=== PATIENT | male | born 1970 | race Caucasian/White ===

== ENCOUNTER 2025-03-16 11:18 | Outpatient (CLI) | payer BC, SELFPAY ==
--- OUTSIDE RECORDS SUMMARY | 2025-03-16 11:23 | XMS_ITS | Clinical Summary ---
Author Organization Healthcare Address [address] [place] [address] Care Team Providers Care Building Admin Name Role Phone Tima Gabriel MD Primary Care Provider Family History Medical History Relation Name Comments Hyperlipidemia Father Hypertension Father Conversions - Other Maternal Grandmother cardiac pacemaker Cardiac disorder Paternal Grandfather Relation Name Status Comments Father Maternal Grandmother Paternal Grandfather Social History Tobacco Use Types Packs/Day Years Used Date Smoking Tobacco: Former Sex and Gender Information Value Date Recorded Sex Assigned at Not on file Legal Sex Male 7:29 PM EDT Gender Identity Not on file Sexual Orientation Not on file Last Filed Vital Signs Vital Sign Reading Time Taken Comments Blood Pressure - - Pulse - - Temperature - - Respiratory Rate - - Oxygen Saturation - - Inhaled Oxygen Concentration - - Weight 89.2 kg (196 lb 10.4 oz) 06/03/2016 3:20 PM EST Height 182.9 cm (6') 06/03/2016 3:20 PM EST Body Mass Index 26.67 06/03/2016 3:20 PM EST Plan of Treatment Not on file Care Teams Building Admin Relationship Specialty Start Date End Date Tima Gabriel MD [address] [place] [id number] PCP - General 11/17/20
--- OUTSIDE RECORDS SUMMARY | 2025-03-16 11:23 | XMS_ITS | Encounter Summary ---
Author Organization [facility] Address [address] [place] [address] Care Team Providers Care Assistant Auto Center Manager Name Role Phone Tima Gabriel MD Primary Care Provider [phone] Encounter Details Date Type Department Care Team (Late st Contact Info) Description 09/06/2011 Conversion Encounter [facility] HISTORICAL CONV [address] [place] [phone] Interface, See Report Social History Tobacco Use Types Packs/Day Years Used Date Smoking Tobacco: Never Assessed Sex and Gender Information Value Date Recorded Sex Assigned at Not on file Legal Sex Male 11:35 AM EDT Gender Identity Not on file Sexual Orientation Not on file documented as of this encounter H&P Notes * Interface, See Report - 09/06/2011 10:56 AM EST Skip Nesibtt M.D. ' Ismael Navarrete M.D. ' Salomón Solorzano M.D. ' TRISH Wise M.D. ' Firas Al Jaramillo, TRISH [address] [facility], [address] [place] [address] [employer] OFFICE NOTE FITO PEREZ : 1970 DATE OF VISIT: 09/06/2011 PROBLEMS: 1. Unexplained urticaria and knifelike pains in his muscles at times. 2. History of superficial phlebitis. 3. History of Crohn's disease. SUBJECTIVE: Overall Fito has done reasonably well. He has strange attacks of knifelike pains, dysesthesias, dyspnea, about every 10 to 14 days and it lasts a few hours. Associated with this is occasional uveitis that can last for a few hours but then passes. He has actually had less urticaria per se that he has had in prior months. He has had no aiden asthmatic attacks that he is aware of but when he exercises just notes that he does not quite have the same stamina in terms of his respiratory reserve that once he had. REVIEW OF SYSTEMS: Negative on ten-point review of systems other than for HPI. SOCIAL HISTORY: Unchanged from 06/07/2011. 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 PHYSICAL EXAMINATION: VITAL SIGNS: Today reveals blood pressure and vital signs normal. SKIN: He has no obvious urticaria on integumentary examination. LUNGS: Clear to auscultation. HEART: Regular rate and rhythm without murmur, gallop or rub. ABDOMEN: Scaphoid with no organomegaly, masses or tenderness. FITO PEREZ : 1970 DATE OF VISIT: 09/06/2011 PHYSICAL EXAMINATION - continued: MUSCULOSKELETAL: Point tenderness over the left chest in the muscle with some point tenderness on the forearms and abdomen as well. ABDOMEN: No rebound or guarding. EXTREMITIES: Reveal no cyanosis, clubbing, edema, or cords and no arthritic changes. NEUROLOGIC: No focal motor or sensory deficits. ASSESSMENT AND PLAN: 1. Inflammatory bowel disease. 2. History of asthma. 3. History of chronic urticaria. 4. Periodic unusual dysesthesias along with muscle pains and dyspnea that is periodic in nature and can happen whether he be under stress or not. DISCUSSION: We have thoroughly worked him up from the urticaria autoimmune standpoint and other than for his Crohn's disease for which he probably needs an ileocecal dilation, he is otherwise doing well. He will follow-up with Dr. Mcclellan on this and I will see him in six months. I have not done a hypercoagulable work-up as his clotting event was only a superficial phlebitis and this has not recurred off of any anticoagulants. I will see him sooner if there are any new clotting events or unexplained dyspnea, etc. Salomón Solorzano M.D.* LH/rxalw Doc. ID [id number] Rev. #0 cc: James Mcclellan II, M.D.* Joanna Clark M.D.* Tima Gabriel M.D., [facility]* Dr. Kate Pereira Copy - 06/07/2012 note Page 2 of 2 Page 1 of 2 Authenticated by SALOMÓN SOLORZANO M.D. On 09/09/2011 12:51:24 PM documented in this encounter Plan of Treatment Upcoming Encounters Date Type Department Care Team (Late st Contact Info) Description 08/26/2025 11:00 AM EST Office Visit [facility] CARDIOLOGY [address] [facility] [address] [place] [address] Carrol Morocho MD [address] [facility] [address] [facility] [address] [place] [address] documented as of this encounter Visit Diagnoses Not on filedocumented in this encounter Care Teams Assistant Auto Center Manager Relationship Specialty Start Date End Date Tima Gabriel MD [address] [facility] [address] [place], [place] [id number] PCP - General 10/17/15 documented as of this encounter
--- OUTSIDE RECORDS SUMMARY | 2025-03-16 11:23 | XMS_ITS | Encounter Summary ---
Author Organization [facility] ystem Address [address] [place] [address] Care Team Providers Care Supervisor Modern Languages Name Role Phone Tima Gabriel MD Primary Care Provider Encounter Details Date Type Department Care Team (Late st Contact Info) Description 06/07/2011 Conversion Encounter [facility] HISTORICAL CONV [address] [place] [address] Interface, See Report Social History Tobacco Use Types Packs/Day Years Used Date Smoking Tobacco: Never Assessed Sex and Gender Information Value Date Recorded Sex Assigned at Not on file Legal Sex Male 11:35 AM EDT Gender Identity Not on file Sexual Orientation Not on file documented as of this encounter H&P Notes * Interface, See Report - 06/07/2011 11:10 AM EST OFFICE NOTE FITO PEREZ : 1970 DATE OF VISIT: 06/07/2011 PROBLEM LIST: 1. Unexplained urticaria. 2. Superficial phlebitis. SUBJECTIVE: Since last I saw Fito his legs have been doing well. Dr. Hernandez had a look at his ultrasound and other than for some mild chronic venous insufficiency with a little bit of residual inflammation of the blood vessel wall itself, there was no residual clot. He has no particular tenderness in the leg at this point and is basically back to feeling normal. He has not had any recent urticaria. REVIEW OF SYSTEMS: Negative for any other ENT, ocular, pulmonologic, gastrointestinal, genitourinary, musculoskeletal, neurologic or integumentary complaints. SOCIAL HISTORY: Unchanged from his last visit. PHYSICAL EXAMINATION: VITAL SIGNS: Reveals him to be afebrile. Normal vital signs. HEENT: No oropharyngeal lesions. LUNGS: Clear. HEART: Regular rate and rhythm. ABDOMEN: No organomegaly, mass or tenderness. EXTREMITIES: No cyanosis, clubbing, edema, or cords. NEUROLOGIC: No focal motor or sensory deficits. NODES: All nonpalpable. FITO PEREZ : 1970 DATE OF VISIT: 06/07/2011 ASSESSMENT AND PLAN: 1. Superficial phlebitis: Even if I did an extensive hypercoagulable work-up, given that this was just a superficial clot that has subsequently resolved, I would not want to relegate him to a lifetime of anticoagulation. On the other hand, even if I did a extensive hypercoagulable work-up and it came back negative, if he nonetheless had recurrent phlebitis or pain in the leg and certainly if he had a deep vein clot or pulmonary embolus then I would want him to be on lifetime anticoagulation regardless of any hypercoagulable work-up even if it were negative. Hence to that end I am not going to do any testing of the blood as it would not change our plan at this point. I discussed this with Mr. Perez and his mother who was with him today and they both understand this and agree with that approach. 2. Urticaria: I have worked this up thoroughly and as I stated on my last note, I think that this as well as his back problems (enthesopathy and spondylolisthesis) are related to his Crohn's and has the Crohn's goes so will go the skin and the back. That it is my best estimate. At present, he is doing well. I will see him back in three months. Salomón Solorzano M.D.* LH/rxalw Doc. ID: [id number] Rev. #0 cc: Page 2 of 2 [facility] Page 1 of 2 Authenticated by SALOMÓN SOLORZANO M.D. On 06/13/2011 01:02:02 PM documented in this encounter Plan of Treatment Upcoming Encounters Date Type Department Care Team (Late st Contact Info) Description 08/26/2025 11:00 AM EST Office Visit [facility] CARDIOLOGY [address] [place] [phone] Carrol Morocho MD [address] [facility] [address] [facility] [address] [place] [id number] documented as of this encounter Visit Diagnoses Not on filedocumented in this encounter Care Teams Supervisor Modern Languages Relationship Specialty Start Date End Date Tima Gabriel MD [address] [facility] [address] [place] [address] PCP - General 10/17/15 documented as of this encounter
--- OUTSIDE RECORDS SUMMARY | 2025-03-16 11:23 | XMS_ITS | Clinical Summary ---
Author Organization [facility] Address [address] [facility] [address] [place] [address] Care Team Providers Care Stone Gluer Name Role Phone Unavailable Primary Care Provider Unavailabl e Social History Tobacco Use Types Packs/Day Years Used Date Smoking Tobacco: Never Assessed Sex and Gender Information Value Date Recorded Sex Assigned at Not on file Legal Sex Male 8:30 AM EDT Gender Identity Not on file Sexual Orientation Not on file Plan of Treatment Health Maintenance Due Date Last Done Comments CT Colonography 1970 Colonoscopy 1970 Colorectal Cancer Screening 1970 FIT-DNA (Cologuard) 1970 FIT 1970 FOBT 1970 HIV Screening 1970 Hepatitis C Screening 1970 Lipid Panel 1970 Sigmoidoscopy 1970 MMR Vaccines (1 of 1 - Stand jaleesa series) 1971 Hepatitis B Screening 1988 DTaP/Tdap/Td Vaccines (1 - Tdap) 1989 Hepatitis B Vaccines (1 of 3 - 19+ 3-dose series) 1989 Pneumococcal Vaccine: 50+ Ye ars (1 of 1 - PCV) 2020 Zoster Vaccines (1 of 2) 2020 Depression Risk Screening 07/07/2024 SDOH Screening 07/07/2024 COVID-19 Vaccine (1 - 2023-2 5 season) 2025 Influenza Vaccine (#1) 2025 HIB Vaccines Aged Out No longer eligi ble based on patient's age to complete this topic HPV Vaccines Aged Out No longer eligi ble based on patient's age to complete this topic Hepatitis A Vaccines Aged Out No long er eligible based on patient's age to complete this topic IPV Vaccines Aged Out No longer eligi ble based on patient's age to complete this topic Meningococcal B Vaccine Aged Out No l onger eligible based on patient's age to complete this topic Meningococcal Vaccine Aged Out No tierney juliane eligible based on patient's age to complete this topic Rotavirus Vaccines Aged Out No longer eligible based on patient's age to complete this topic
--- OUTSIDE RECORDS SUMMARY | 2025-03-16 11:24 | XMS_ITS | Clinical Summary ---
Author Organization [facility] Address [address] [place] [address] Care Team Providers Care Meter Attendant Name Role Phone Tima Gabriel MD Primary Care Provider Allergies Active Allergy Reactions Criticality Noted Date Comments Adalimumab Anaphylaxis,Hives High 05/07/2016 Methotrexate Derivatives 05/07/2016 Infection (fever/N/V) Medications aspirin 81 MG tablet Take 1 tablet by mouth Daily. Active Cholecalciferol (VITAMIN D3) 5000 UNITS tablet Take by mouth Daily. Active albuterol sulfate HFA 108 (90 Base) MCG/ACT inhaler 2 (Two) Times a Day As Needed. Active predniSONE (DELTASONE) 10 MG tablet 2 (Two) Times a Day As Needed. Active bisoprolol (ZEBeta) 5 MG tablet Take 0.5 tablets by mouth Daily. 90 tablet 1 5 Active nitroglycerin (NITROSTAT) 0.4 MG SL tablet 1 under the tongue as needed for angina, may repeat q5mins for up three doses 25 tablet 1 5 Active sodium-potassiu m-magnesium sulfates (Suprep Bowel Prep Kit) 17.5-3.13-1.6 GM/177ML solution oral solution Take 1st dose at 5pm. Take 2nd dose at 10pm. Nothing to eat/drink after midnight. Follow prep instructions provided by office. Questions call [phone]. 354 mL 5 Active Guselkumab (Tremfya) 200 MG/20ML solution Infuse 20 mL into a venous catheter Take As Directed. Infuse 20 mL at Week 0, 4, and 8 20 mL 2 5 Active Active Problems Problem Noted Date Diagnosed Date Statin intolerance 03/07/2017 Fatigue 03/07/2017 Elevated blood pressure 08/26/2016 Palpitations 08/26/2016 PVC (premature ventricular contraction) 08/26/19 17 GERD (gastroesophageal reflux disease) 7 Coronary artery disease invo lving umkumiut coronary artery of umk[place] heart without angina pectoris 05/07/2016 Overview (05/07/2016): a. Hospitalization with acute coronary syndrome/non-ST elevation [place], 07/22/2015. b. Urgent cardiac catheterization study by Dr. Morocho, 07/22/2015, showed single-vessel disease with total occlusion of the distal/apical segment of the right posterior descending coronary artery with mild nonobstructive plaque of the mid- LAD. Ejection fraction 55% to 60% with mid-inferior wall dyskinesis. c. Occluded vessels severed a small territory and was felt to be due to spontaneous dissection or disembolization and was not suitable for catheter-based intervention. d. Post IA frequent ventricular ectopy with subsequent improvement. Dyslipidemia 05/07/2016 Essential hypertension 05/07/2016 Crohn's disease 05/07/2016 Inflammatory arthritis 05/07/2016 Cardiac arrhythmia 05/07/2016 Overview (05/07/2016): 1. Cardiac arrhythmia/frequent premature ventricular contractions, stable. Encounters Date Type Department Care Team Description 01/01/2025 Results Follow-Up [facility] [address] [place] [address] Christiano Ramos MD 12/31/2024 Prior Authorization [facility] GASTROENTEROLOGY [address] [facility] [place] [address] Astrid Chan MA Tremfya 12/31/2024 Telephone [facility] [address] [facility] [address] [place] [address] Christiano Ramos MD Tremfya Hold 12/28/2024 Refill [facility] [address] [facility] [address] [place] [address] Christiano Ramos MD 12/27/2024 11:30 AM EDT Outside Facility Service [facility] [address] [facility] [address] [place] [address] Christiano Ramos MD 12/14/2024 Refill [facility] [address] [facility] [address] [place] [address] Christiano aRmos MD from Last 3 Months Immunizations Immunization Administration Dates Next Due Tdap 04/11/2018 Family History Medical History Relation Name Comments Hyperlipidemia Father Je Hypertension Father Je Cancer Maternal Grandfather Hypertension Maternal Grandmother Vi No Known Problems Mother Heart disease Paternal Grandfather Grandpy Diabetes Paternal Grandmother Autoimmune disease Sister Fibromyalgia Sister Relation Name Status Comments Father Je Alive Maternal Grandfather Maternal Grandmother Vi Mother Alive Paternal Grandfather Grandpy Paternal Grandmother Sister Alive Social History Tobacco Use Types Packs/Day Years Used Date Smoking Tobacco: Former Cigarettes 0.5 1 0 07/07/1990 - 06/07/1991 Passive Smoke Exposure: Never Smokeless Tobacco: Never Tobacco Cessation:Counseling Given: Not Answered Alcohol Use Standard Drinks/Week Comments Yes 4 (1 standard drink = 0.6 oz pur e alcohol) occasional Sex and Gender Information Value Date Recorded Sex Assigned at Not on file Legal Sex Male 11:35 AM EDT Gender Identity Not on file Sexual Orientation Not on file Last Filed Vital Signs Vital Sign Reading Time Taken Comments Blood Pressure 128/90 11/24/2024 11:23 AM EDT Pulse 69 11/24/2024 11:23 AM EDT Temperature 36.6 C (97.8 F) 04/13/2019 1:30 PM EDT Respiratory Rate 16 04/13/2019 1:30 PM EDT Oxygen Saturation 98% 11/24/2024 11:23 AM EDT Inhaled Oxygen Concentration - - Weight 82.6 kg (182 lb) 11/24/2024 11:23 AM EDT Height 182.9 cm (6') 11/24/2024 11:23 AM EDT Body Mass Index 24.68 11/24/2024 11:23 AM EDT Plan of Treatment Upcoming Encounters Date Type Department Care Team (Late st Contact Info) Description 08/26/2025 11:00 AM EST Office Visit [facility] CARDIOLOGY [address] [place] [phone] Carrol Morocho MD [address] [place] [address] Health Maintenance Due Date Last Done Comments COLOGUARD 2015 COLON CANCER SCREENING 5 YEA R SIGMOIDOSCOPY 2015 CT COLONOGRAPHY 2015 FECAL OCCULT BLOOD TEST 2015 FIT Testing (1 year) 2015 ANNUAL PHYSICAL 01/23/2017 HEPATITIS C SCREENING 01/23/2017 Pneumococcal Vaccine 50+ (1 of 1 - PCV) 2020 ZOSTER VACCINE (1 of 2) 2020 COVID-19 Vaccine (1 - season) 2025 INFLUENZA VACCINE 04/06/2025 04/27/2018, 05/01/2010 TDAP/TD VACCINES (2 - Td or Tdap) 04/11/2028 018 COLONOSCOPY 12/27/2034 12/27/2024 COLORECTAL CANCER SCREENING 12/27/2034 Procedures Procedure Name Priority Date/Time Associated Diagnosis Comments TISSUE PATHOLOGY EXAM Routine 12/27/2024 2:50 PM EDT Personal history of colon polyps, unspecified Ulcerative colitis, unspecified, without complications Noninfective gastroenteritis and colitis, unspecified SCANNED - COLONOSCOPY 12/27/2024 from Last 3 Months Results * Tissue Pathology Exam (12/27/2024 2:50 PM EDT) Case Report Surgical Pathology Report Case: [id number] Authorizing Provider: Christiano Ramos Collected: 12/27/2024 02:50 PM MD Angel Ordering Location: [facility] Received: 12/28/2024 06:51 AM LABORATORY Pathologist: Burton Chandra MD Specimen: Ileum, terminal 12/29/2024 11:05 AM EDT [facility] Clinical Information Personal history of colon polyps, unspecified Ulcerative colitis, unspecified, without complications Noninfective gastroenteritis and colitis, unspecified 12/29/2024 11:05 AM EDT [facility] Final Diagnosis TERMINAL ILEUM, BIOPSY: Chronic mildly active ileitis with ulcer Negative for dysplasia or malignancy GJK 12/29/2024 11:05 AM EDT [facility] at 1105 EDT Gross Description 1. Ileum, terminal. Received in formalin labeled terminal ileum ulcer is a 1 x 0.3 x 0.1 cm aggregate of multiple timmons tissue fragments, submitted entirely in a single cassette. LDP 12/29/2024 11:05 AM EDT [facility] Microscopic Description The slides are reviewed and demonstrate histopathologic features supporting the above rendered diagnosis. 12/29/2024 11:05 AM EDT [facility] Tissue Structure of distal portion of ileum / Unknown 12/27/2024 2:50 PM EDT 12/28/2024 6:51 AM EDT Christiano Ramos MD PATHOLOGY/CYTOLOG Y ORDERABLES Final Result [facility]
[address] [place] [address], * Colonoscopy, Scan (12/27/2024) Christiano Ramos MD CHART REVIEW T ABS Final Result from Last 3 Months Insurance [facility] Care Teams Meter Attendant Relationship Specialty Start Date End Date Tima Gabriel MD [address] [place] [address] PCP - General 10/17/15
== END 2025-03-16 23:59 | disposition home or self-care (01) ==
LOC: LAB 11:20
PROVIDERS: PCP Family Medicine; Visit Provider Internal Medicine Gastroenterology
DX: D69.6 Thrombocytopenia, unspecified (principal); K74.69 Other cirrhosis of liver; B19.20 Unspecified viral hepatitis C without hepatic coma; R74.01 Elevation of levels of liver transaminase levels